=== PATIENT | male | born 1935 | race Caucasian/White ===

== ENCOUNTER 2016-07-04 10:26 | Day surgery (SDC) | payer BC ==
--- NOTE | ~2016-07-04 | OP ---
Record Of Operation [facility] [address] [place]. [address] NAME: VALENTÍN FLORES : 35 STATUS : [facility]#: [id number] AGE: 80 ADM/REG DATE : 07/04/16 MR#: [id number] REPORT SERV DATE: 07/04/16 DICTATED BY: VALENTÍN TRACY DATE: 07/04/16 REPORT STATUS : Draft TRANSCRIBED BY: MODL DATE: 07/04/16 DATE OF PROCEDURE: 07/04/2016 PREOPERATIVE DIAGNOSIS: End-stage renal disease. POSTOPERATIVE DIAGNOSIS: End-stage renal disease. PROCEDURE: Left radiocephalic fistula. SURGEON: Valentín Tracy M.D. SENIOR PORTFOLIO ANALYST: Audrey. ANESTHESIA: Local with sedation. COMPLICATIONS: None. ESTIMATED BLOOD LOSS: 30 mL. HISTORY: The patient is an 80-year-old male with end-stage renal disease in need of a fistula for dialysis. It was felt he would benefit from a left arm fistula as he is right handed. This was discussed in detail with the patient. He expressed understanding and desired to proceed. DESCRIPTION OF PROCEDURE: The patient was taken to the operating room and placed in the supine position. He was given IV sedation without complication. Left arm was prepped and draped in the sterile fashion. Ultrasound confirmed a 2.5 mm cephalic vein at the wrist as well as a 2.5 mm radial artery. 1% lidocaine was infiltrated in the wrist and a longitudinal incision created. Dissection was performed to identify the cephalic vein which was of adequate size. This was freed circumferentially and isolated with vessel loop. The patient was given 3000 units of heparin intravenously. Attention was turned medially. Dissection was performed to identify the radial artery which was freed circumferentially and isolated with a vessel loop. The vein was controlled with clips distally, divided proximal to the clips, spatulated through a branch point to create a wide mouth for anastomosis. The multiple distal branches were identified, ligated with clips and/or ties and divided to free the vein of any tension. After more than 3 minutes of heparinization, the artery was controlled proximally and distally with vascular clamps. An 11 blade was used to create an arteriotomy which was extended with Kee scissors. The vein was sewn end-to-side to the artery with running 6-0 Prolene suture. Upon completion, flow was restored. A bleeding point was controlled with additional 6-0 Prolene suture. The vein was dissected proximally, freeing it of any tension. The vein had excellent bruit. Once hemostasis was assured, the subcutaneous tissues were closed with 3-0 Vicryl suture. The skin was closed with 4-0 Monocryl suture and Dermabond dressing applied. The patient tolerated the procedure well and will be taken to the recovery room and discharged home when stable. Record Of Operation [address] [place]. [address] NAME: VALENTÍN FLORES : 35 STATUS : [facility] PAT#: [id number] AGE: 80 ADM/REG DATE : 07/04/16 MR#: [id number] REPORT SERV DATE: 07/04/16 DICTATED BY: VALENTÍN TRACY DATE: 07/04/16 REPORT STATUS : Draft TRANSCRIBED BY: VANESSA DATE: 07/04/16 ALFONSO/VANESSA Valentín Tracy M.D. / [id number] CC: Jaren Lou MD
[~2016-07-04 10:26] MED LIST: *UNABLE1; *UNABLE2; ATEN50 PO; AUG500 PO; AUG875 PO; CEFT5 PO; COREG3 PO; ELIQUIS 5 MG TAB5 MG PO; HALF81 PO; IMDUR30 PO; LYRICA200 MG PO; LYRICA75 PO; MIRALAXPKT PO; MULTIVITAMI1 PO; NEUR300 PO; NITROSTAT0.4 MG SL; NTG150 SL; OTC SLEEP AID PO; OXYCOD PO; OXYCON40 PO; OXYIR5 MG PO; PERCOCET1 TA4 PO; PRIN10 PO; PRIN20 PO; PROAIR HFA INH; SIMPLY SLEEP25 MG PO; Z300 PO; ZOCOR40 PO; [UNRECOGNIZED DRUG - OTHER] PO
[2016-07-04 11:26] LABS: MEAN CORPUS HGB CONC 32.9 g/dL (32.0-36.0); MEAN PLATELET VOLUME 9.2 fL (9.2-13.0); PLATELET COUNT 242 10/3/uL (150-400); WHITE BLOOD CELLS 12.9 10/3/uL (4.5-10.5)
[2016-07-04 11:27] LABS: HEMATOCRIT 48.4 % (40.0-51.0); HEMOGLOBIN 15.9 g/dL (13.6-17.8); MANUAL DIFF YES %; MEAN CORPUSCULAR HEMOGLOB 29.2 pg (26.0-34.0); MEAN CORPUSCULAR VOLUME 88.8 fL (80-100); RED CELL COUNT 5.45 10/6/uL (4.7-6.1)
[2016-07-04 11:40] LABS: CALCIUM, SERUM 9.7 MG/DL (8.5-10.4); CHLORIDE, SERUM 102 MMOL/L (96-112); CO2 (CARBON DIOXIDE) 28 MMOL/L (24-34); GFR AFRICAN AMERICAN 20 ML/MIN (>=60); GFR NON AFRICAN AMERICAN 18 ML/MIN (>=60); GLUCOSE, SERUM 105 MG/DL (60-99); SODIUM, SERUM 140 MMOL/L (135-148)
[2016-07-04 11:41] LABS: BUN (BLOOD UREA NITROGEN) 40 MG/DL (6-23); CREATININE 3.17 MG/DL (0.70-1.30); POTASSIUM, SERUM 4.8 MMOL/L (3.5-5.3)
[2016-07-04 11:45] LABS: ANISOCYTOSIS 1+ (5-10/OIF) (0-5/OIF); EOSINOPHILS 5 %; EOSINOPHILS ABSOLUTE (CALC) 0.65 10/3/uL (0.0-0.53); LYMPHOCYTES 56 %; LYMPHOCYTES ABSOLUTE (CALC) 7.22 10/3/uL (0.67-4.30); MONOCYTES 6 %; MONOCYTES ABSOLUTE (CALC) 0.77 10/3/uL (0.21-1.20); NEUTROPHILS ABSOLUTE (CALC) 4.26 10/3/uL (2.02-8.40); PLATELET ESTIMATE ADQ (ADEQUATE); SEGMENTED NEUTROPHIL (0) 33 %; TOTAL NUCLEATED CELLS 100
== END 2016-07-04 15:23 | disposition home or self-care (01) ==
LOC: SDC 10:26
PROVIDERS: Surgery
PROC: 03180ZD Bypass Left Brachial Artery to Upper Arm Vein, Open Approach (ICD-10-PCS; principal; 2016-07-04 12:45)
DX: I12.0 Hypertensive chronic kidney disease with stage 5 chronic kidney disease or end stage renal disease (principal); N18.6 End stage renal disease; J44.9 Chronic obstructive pulmonary disease, unspecified; Z98.890 Other specified postprocedural states; Z79.899 Other long term (current) drug therapy; Z87.891 Personal history of nicotine dependence; I73.9 Peripheral vascular disease, unspecified; E78.5 Hyperlipidemia, unspecified
CPT/HCPCS: 80048; 85025; 93005; A9270-GY; J0690; J2250; J2370; J2405; J2795; J3010

== ENCOUNTER 2016-07-12 13:19 | Inpatient (IN) | payer BC ==
--- NOTE | ~2016-07-12 | HP ---
History And Physical [facility] [address] [place]. [address] NAME: PERRI FLORES : 35 STATUS : ADM IN [facility]#: [id number] AGE: 80 ADM/REG DATE : 07/12/16 MR#: [id number] REPORT SERV DATE: 07/12/16 DICTATED BY: KERON SOW DATE: 07/12/16 REPORT STATUS : Draft TRANSCRIBED BY: MODDarius DATE: 07/12/16 DATE OF ADMISSION: 07/12/2016 CHIEF COMPLAINT: Hypotension, altered mental status. HISTORY OF PRESENT ILLNESS: The patient is an 80-year-old white male with significant past medical history of ESRD, diabetes, COPD, remote PTE, presented with altered mental status and generalized weakness in the setting of hypotension and elevated white blood cell count. No family is at bedside. The patient is confused. The patient had a right wrist AV fistula completed by Dr. Tracy on 07/04/2016 and discharged to home. He presents today with altered mental status and generalized weakness. In the ER, he was noted to have systolic blood pressure in the 80s. He has been given 1 L of IV fluids. The patient does have a history of altered mental status in the past associated with medications such as Lyrica and oxycodone. I am unsure if the patient received pain medications on discharge status post right wrist AV fistula. However, it is noted that the patient's mental status improved when he got naloxone 0.4 mg IV x1. However, at the same time systolic blood pressure improved into the 100s to 120s with Levophed and IV fluids. Home medication list is unknown at this time. The patient did have a history of adrenal insufficiency in the setting of sepsis. He has already received Solu-Medrol 125 mg IV x1. His chest x-ray did not show any infiltrates or effusions. His CBC showed a white count of 20.1. He does have a left IJ PermCath clean and intact. Blood cultures were taken and pending. He has a right wrist AV fistula with erythema around the surgical wound. No nausea vomiting, diarrhea reported by the patient, but the patient is confused. No rash is appreciated. Troponin is less than 0.02. PAST MEDICAL/PAST SURGICAL HISTORY: 1. End-stage renal disease, dialyzes Tuesdays, , and Saturdays at [facility]. 2. Diabetes with a right AV fistula at the wrist created and left IJ PermCath placed. 3. Pulmonary embolus, on chronic Eliquis. 4. Chronic obstructive pulmonary disease. 5. Encephalopathy. 6. Adrenal insufficiency with history of sepsis. 7. History of right kidney mass. 8. Pending. SOCIAL HISTORY: No tobacco, alcohol or drugs. FAMILY MEDICAL HISTORY: No known kidney disease. ALLERGIES: NO KNOWN DRUG ALLERGIES. HOME MEDICATIONS: Not known at this time. History And Physical [place] [id number] [facility] [place]. [address] NAME: PERRI FLORES : 35 STATUS : ADM IN [facility]#: [id number] AGE: 80 ADM/REG DATE : 07/12/16 MR#: [id number] REPORT SERV DATE: 07/12/16 DICTATED BY: KERON SOW DATE: 07/12/16 REPORT STATUS : Draft TRANSCRIBED BY: VANESSA DATE: 07/12/16 REVIEW OF SYSTEMS: Complete review of systems is not obtainable with the patient's current mental status. PHYSICAL EXAMINATION: VITAL SIGNS: Temperature is 98.4, pulse is 108, blood pressure is 90/51, O2 sats 97%, however, on 3 L nasal cannula oxygen. GENERAL: He is confused and lethargic on an initial examination. After giving naloxone and increasing his blood pressure, mental status improves. SKIN: No petechiae, purpura, or rash. NECK: No JVP. Trachea is midline. CARDIOVASCULAR: Regular rate and rhythm. No gallops, rubs, or murmurs. RESPIRATORY: Clear to auscultation bilateral with increased respiratory rate. ABDOMEN: Soft, nontender, nondistended. Positive bowel sounds. EXTREMITIES: No peripheral edema. Access is PermCath. In addition, he has an AV fistula in his right wrist. Mild erythema around the site. Chest x-ray, no infiltrates or effusions. Echo pending. CT scan of the head pending. ASSESSMENT: 1. Hypotension secondary to possible sepsis with unknown infection at this time. The patient does have a PermCath in place. It does look clean intact, but it could still be a source of infection. He has a right wrist arteriovenous fistula that looks like mild erythema, perhaps some cellulitis. Likewise, he has a history of adrenal insufficiency with sepsis. Final, pain; the patient might be taking pain medications status post surgery for his arteriovenous fistula leading to hypotension. 2. Altered mental status in the setting of hypotension. The patient is noted to have clinically improved after getting naloxone 0.4 mg IV x1 in addition with improved hemodynamics on Levophed. 3. Chronic obstructive pulmonary disease and pulmonary thromboembolism. 4. Diabetes. 5. History of adrenal insufficiency with sepsis. 6. Sinus tachycardia in the setting of possible sepsis. PLAN: 1. Access PermCath for central line access. 2. IV fluids. 3. Levophed drip. 4. Echocardiogram. Head CT scan. 5. Vancomycin and Zosyn. 6. Blood cultures. 7. Head CT scan. 8. Check TSH, free T4, B12 folate. 9. ABG on arrival to ICU. 10.Hemodialysis versus DIAL LATHE OPERATOR based on hemodynamics. 11.Two amps of bicarb IV now. History And Physical [address] [address] NAME: PERRI FLORES : 35 STATUS : ADM IN [facility]#: [id number] AGE: 80 ADM/REG DATE : 07/12/16 MR#: [id number] REPORT SERV DATE: 07/12/16 DICTATED BY: KERON SOW. DATE: 07/12/16 REPORT STATUS : Draft TRANSCRIBED BY: MODDarius DATE: 07/12/16 12.Serial cardiac markers. 13.Sliding scale insulin. SGG/MODL Keron Sow M.D. / [id number] CC: Keron Sow M.D.
[2016-07-12 13:02] LABS: ALLENS TEST Pos; BE (BASE EXCESS) -3.1 MEQ/L (0 +/- 2.5); CARBOXYHEMOGLOBIN 4.1 % (0-3); HCO3 (ACTUAL BICARBONATE) 23.5 MEQ/L (23-27); HEMOBLOGIN CONTENT 14.8 G/DL (14-18); INSTRUMENT SERIAL # 8087; METHEMOGLOBIN 0.2 % (0-3); O2 CONTENT 18.1 VOL% (18-24); OPERATOR ID 14335; PCO2 (CO2 TENSION) 48 MMHG (35-45); PO2 (O2 TENSION) 64 MMHG (79-93); SAMPLE Arterial; pH 7.31 (7.37-7.43)
[2016-07-12 13:42] LABS: BASOPHILS 0.3 %; BASOPHILS ABSOLUTE 0.06 10/3/uL (0.0-0.16); HEMOGLOBIN 13.9 g/dL (13.6-17.8); IMMATURE GRANULOCYTES 0.2 %; LYMPHOCYTES 34.1 %; LYMPHOCYTES ABSOLUTE 6.85 10/3/uL (0.67-4.30); MEAN CORPUS HGB CONC 33.2 g/dL (32.0-36.0); MEAN CORPUSCULAR HEMOGLOB 29.1 pg (26.0-34.0); MEAN CORPUSCULAR VOLUME 87.8 fL (80-100); MEAN PLATELET VOLUME 9.5 fL (9.2-13.0); MONOCYTES 6.2 %; MONOCYTES ABSOLUTE 1.24 10/3/uL (0.21-1.20); NEUTROPHILS 58.2 %; NEUTROPHILS ABSOLUTE 11.69 10/3/uL (2.02-8.40); PLATELET COUNT 214 10/3/uL (150-400); RBC DISTRIBUTION WIDTH 16.5 % (12.0-16.0); RED CELL COUNT 4.77 10/6/uL (4.7-6.1)
[2016-07-12 13:44] LABS: ER CBC TAT 0 Hrs 07 Mins; HEMATOCRIT 41.9 % (40.0-51.0); WHITE BLOOD CELLS 20.1 10/3/uL (4.5-10.5)
[2016-07-12 13:45] LABS: IMMATURE GRANULOCYTES ABSOLUTE 0.05 10/3/uL (0.0-0.11); MANUAL DIFF NO %
[2016-07-12 13:56] LABS: INTERNATIONAL NORMAL RATI 1.5 UNITS (-); PARTIAL THROMBO TIME 38.8 SEC (22.5-37.2); PROTIME (NOT ORD) 17.8 SEC (12.0-14.5)
[2016-07-12 13:59] LABS: BUN (BLOOD UREA NITROGEN) 70 MG/DL (6-23); CALCIUM, SERUM 8.9 MG/DL (8.5-10.4); CHEST PAIN PROFILE TAT 0 Hrs 22 Mins; CHLORIDE, SERUM 98 MMOL/L (96-112); CO2 (CARBON DIOXIDE) 26 MMOL/L (24-34); GFR AFRICAN AMERICAN 12 ML/MIN (>=60); GFR NON AFRICAN AMERICAN 10 ML/MIN (>=60); GLUCOSE, SERUM 142 MG/DL (60-99); LACTATE 1.2 MMOL/L (0.3-2.4); POTASSIUM, SERUM 4.3 MMOL/L (3.5-5.3); SODIUM, SERUM 135 MMOL/L (135-148); TROPONIN I <0.02 NG/ML (<0.05)
[2016-07-12 14:07] LABS: BAND NEUTROPHILS 6 %; EOSINOPHILS 1 %; ER DIFF TAT 0 Hrs 30 Mins; LYMPHOCYTES 33 %; LYMPHOCYTES ABSOLUTE (CALC) 6.63 10/3/uL (0.67-4.30); MONOCYTES 2 %; NEUTROPHILS ABSOLUTE (CALC) 12.86 10/3/uL (2.02-8.40); PLATELET ESTIMATE ADQ (ADEQUATE); SEGMENTED NEUTROPHIL (0) 58 %; TOTAL NUCLEATED CELLS 100
[2016-07-12 14:08] LABS: RBC MORPHOLOGY NORM (NORMAL); SMUDGE CELLS OCC
[2016-07-12] MEDS ORDERED: OXYCOD PO (14:30)
[2016-07-12] MEDS ORDERED: LYRICA200 MG PO (14:31)
[2016-07-13 04:58] LABS: BASOPHILS 0 %; EOSINOPHILS 0 %; HEMOGLOBIN 14.4 g/dL (13.6-17.8); IMMATURE GRANULOCYTES 0.3 %; IMMATURE GRANULOCYTES ABSOLUTE 0.04 10/3/uL (0.0-0.11); LYMPHOCYTES 12.4 %; LYMPHOCYTES ABSOLUTE 1.71 10/3/uL (0.67-4.30); MEAN CORPUS HGB CONC 33.5 g/dL (32.0-36.0); MEAN CORPUSCULAR HEMOGLOB 29.4 pg (26.0-34.0); MEAN CORPUSCULAR VOLUME 87.8 fL (80-100); MEAN PLATELET VOLUME 9.6 fL (9.2-13.0); MONOCYTES 1.1 %; MONOCYTES ABSOLUTE 0.15 10/3/uL (0.21-1.20); NEUTROPHILS 86.2 %; NEUTROPHILS ABSOLUTE 11.86 10/3/uL (2.02-8.40); PLATELET COUNT 207 10/3/uL (150-400); RBC DISTRIBUTION WIDTH 16.4 % (12.0-16.0); WHITE BLOOD CELLS 13.8 10/3/uL (4.5-10.5)
[2016-07-13 05:04] LABS: MANUAL DIFF NO %
[2016-07-13 05:12] LABS: A/G RATIO 0.6 (0.7-1.9); ALBUMIN 2.7 G/DL (3.5-5.0); BUN (BLOOD UREA NITROGEN) 72 MG/DL (6-23); CALCIUM, SERUM 9.4 MG/DL (8.5-10.4); CHLORIDE, SERUM 100 MMOL/L (96-112); CO2 (CARBON DIOXIDE) 25 MMOL/L (24-34); GLOBULIN 4.6 G/DL (2.5-4.1); GLUCOSE, SERUM 134 MG/DL (60-99); POTASSIUM, SERUM 4.7 MMOL/L (3.5-5.3); SGOT(AST) 13 U/L (5-40); SGPT(ALT) 8 U/L (5-65); SODIUM, SERUM 137 MMOL/L (135-148); TOTAL BILIRUBIN 0.4 MG/DL (0-1.2); TOTAL PROTEIN 7.3 G/DL (6.0-8.5); TROPONIN I <0.02 NG/ML (<0.05)
[2016-07-13 05:20] LABS: ALKALINE PHOSPHATASE 112 U/L (45-117); CPK 137 U/L (0-200); CREATININE 4.23 MG/DL (0.70-1.30); GFR AFRICAN AMERICAN 14 ML/MIN (>=60); GFR NON AFRICAN AMERICAN 12 ML/MIN (>=60)
[2016-07-14 09:58] LABS: BASOPHILS 0.4 %; BASOPHILS ABSOLUTE 0.05 10/3/uL (0.0-0.16); EOSINOPHILS 0.5 %; EOSINOPHILS ABSOLUTE 0.07 10/3/uL (0.0-0.53); HEMATOCRIT 42.6 % (40.0-51.0); HEMOGLOBIN 13.9 g/dL (13.6-17.8); IMMATURE GRANULOCYTES 0.4 %; IMMATURE GRANULOCYTES ABSOLUTE 0.05 10/3/uL (0.0-0.11); LYMPHOCYTES ABSOLUTE 3.54 10/3/uL (0.67-4.30); MANUAL DIFF NO %; MEAN CORPUS HGB CONC 32.6 g/dL (32.0-36.0); MEAN CORPUSCULAR HEMOGLOB 28.7 pg (26.0-34.0); MEAN PLATELET VOLUME 10.3 fL (9.2-13.0); MONOCYTES 7.2 %; MONOCYTES ABSOLUTE 0.98 10/3/uL (0.21-1.20); NEUTROPHILS 65.5 %; PLATELET COUNT 220 10/3/uL (150-400); RBC DISTRIBUTION WIDTH 16.4 % (12.0-16.0); RED CELL COUNT 4.84 10/6/uL (4.7-6.1); WHITE BLOOD CELLS 13.6 10/3/uL (4.5-10.5)
[2016-07-14 10:09] LABS: ALBUMIN 2.7 G/DL (3.5-5.0); CALCIUM, SERUM 9.5 MG/DL (8.5-10.4); CHLORIDE, SERUM 106 MMOL/L (96-112); CO2 (CARBON DIOXIDE) 26 MMOL/L (24-34); PHOSPHORUS, SERUM 2.6 MG/DL (2.5-4.5); POTASSIUM, SERUM 3.9 MMOL/L (3.5-5.3); SODIUM, SERUM 143 MMOL/L (135-148)
[2016-07-14 10:10] LABS: BUN (BLOOD UREA NITROGEN) 39 MG/DL (6-23); CREATININE 2.36 MG/DL (0.70-1.30); GFR AFRICAN AMERICAN 29 ML/MIN (>=60); GFR NON AFRICAN AMERICAN 25 ML/MIN (>=60); GLUCOSE, SERUM 80 MG/DL (60-99)
== END 2016-07-14 17:31 | disposition home or self-care (01) | DRG 871 ==
LOC: ER 13:19 → IMCU 15:29 → 2SO 07-13 13:48
PROVIDERS: Emergency Medicine; Internal Medicine Nephrology
PROC: 5A1D00Z (ICD-10-PCS; principal; 2016-07-13)
DX: A41.9 Sepsis, unspecified organism (principal); N18.6 End stage renal disease; G93.41 Metabolic encephalopathy; I95.9 Hypotension, unspecified; E11.22 Type 2 diabetes mellitus with diabetic chronic kidney disease; I12.0 Hypertensive chronic kidney disease with stage 5 chronic kidney disease or end stage renal disease; E27.40 Unspecified adrenocortical insufficiency; L03.113 Cellulitis of right upper limb; J44.9 Chronic obstructive pulmonary disease, unspecified; N28.89 Other specified disorders of kidney and ureter; Z99.2 Dependence on renal dialysis; Z79.4 Long term (current) use of insulin; Z86.711 Personal history of pulmonary embolism
CPT/HCPCS: 36600; 70450; 71010; 80048; 80053; 80069; 82140; 82150; 82550; 82553; 82805; 82962; 83605; 83690; 83735; 84145; 84484; 85025; 85610; 85730; 87040; 93005; 94640; 96374; 99291; A9270-GY; G0257; J2543; J2930; J3370; P9047

== ENCOUNTER 2016-08-16 15:14 | Emergency (ER) | payer BC ==
[2016-08-16 14:50] LABS: BASOPHILS 0.3 %; BASOPHILS ABSOLUTE 0.03 10/3/uL (0.0-0.16); EOSINOPHILS 0.1 %; EOSINOPHILS ABSOLUTE 0.01 10/3/uL (0.0-0.53); IMMATURE GRANULOCYTES 0.4 %; IMMATURE GRANULOCYTES ABSOLUTE 0.04 10/3/uL (0.0-0.11); LYMPHOCYTES 16.9 %; LYMPHOCYTES ABSOLUTE 1.88 10/3/uL (0.67-4.30); MEAN CORPUSCULAR HEMOGLOB 29.5 pg (26.0-34.0); MEAN CORPUSCULAR VOLUME 85.8 fL (80-100); MEAN PLATELET VOLUME 9.5 fL (9.2-13.0); MONOCYTES 0.9 %; NEUTROPHILS 81.4 %; NEUTROPHILS ABSOLUTE 9.06 10/3/uL (2.02-8.40); PLATELET COUNT 247 10/3/uL (150-400); RBC DISTRIBUTION WIDTH 14.3 % (12.0-16.0); WHITE BLOOD CELLS 11.1 10/3/uL (4.5-10.5)
[2016-08-16 14:51] LABS: HEMATOCRIT 51.4 % (40.0-51.0); HEMOGLOBIN 17.7 g/dL (13.6-17.8); MANUAL DIFF NO %; MEAN CORPUS HGB CONC 34.4 g/dL (32.0-36.0); RED CELL COUNT 5.99 10/6/uL (4.7-6.1)
[2016-08-16 14:58] LABS: INTERNATIONAL NORMAL RATI 1.2 UNITS (-)
[2016-08-16 15:02] LABS: PROTIME (NOT ORD) 14.6 SEC (12.0-14.5)
[2016-08-16 15:06] LABS: A/G RATIO 0.8 (0.7-1.9); ALBUMIN 3.7 G/DL (3.5-5.0); ALKALINE PHOSPHATASE 152 U/L (45-117); BUN (BLOOD UREA NITROGEN) 51 MG/DL (6-23); CALCIUM, SERUM 10.1 MG/DL (8.5-10.4); CHLORIDE, SERUM 100 MMOL/L (96-112); CO2 (CARBON DIOXIDE) 24 MMOL/L (24-34); CREATININE 3.28 MG/DL (0.70-1.30); GFR AFRICAN AMERICAN 20 ML/MIN (>=60); GFR NON AFRICAN AMERICAN 17 ML/MIN (>=60); GLOBULIN 4.6 G/DL (2.5-4.1); GLUCOSE, SERUM 157 MG/DL (60-99); SGOT(AST) 14 U/L (5-40); SGPT(ALT) 17 U/L (5-65); SODIUM, SERUM 135 MMOL/L (135-148); TOTAL BILIRUBIN 0.4 MG/DL (0-1.2); TOTAL PROTEIN 8.3 G/DL (6.0-8.5)
[2016-08-16 15:07] LABS: LACTATE 2.4 MMOL/L (0.3-2.4)
[2016-08-16 15:13] LABS: INFLUENZA A SCREEN NEGATIVE (NEGATIVE); INFLUENZA B SCREEN NEGATIVE (NEGATIVE)
[2016-08-16 15:33] LABS: ASCORBIC ACID (UR NOT ORDER) NEG (NEG); BILIRUBIN, URINE NEGATIVE (NEG); ER URINALYSIS TAT 0 Hrs 13 Mins; KETONE, URINE NEGATIVE (NEG); LEUKOCYTE ESTERASE(NOT OR LARGE (NEG); NITRITE (URINE) NEG (NEG); WBC (NOT ORDERED) (RFLEX) > 182 (0-5)
[2016-08-16 16:09] LABS: PROCALCITONIN 0.07 ng/mL (<0.5)
== END 2016-08-16 20:09 | disposition home or self-care (01) ==
LOC: ER 15:14
PROVIDERS: Nurse Practitioner Family
DX: N39.0 Urinary tract infection, site not specified (principal); J44.9 Chronic obstructive pulmonary disease, unspecified; I12.0 Hypertensive chronic kidney disease with stage 5 chronic kidney disease or end stage renal disease; N18.6 End stage renal disease; E11.22 Type 2 diabetes mellitus with diabetic chronic kidney disease; F17.200 Nicotine dependence, unspecified, uncomplicated; Z79.899 Other long term (current) drug therapy
CPT/HCPCS: 71010; 80053; 81001; 83605; 83690; 83880; 84145; 85025; 85610; 85730; 87040; 87077; 87086; 87186; 87804; 93005; 96365; 96375; 99285; J1956; J2405